=== PATIENT | female | born 2000 | race Caucasian/White ===

== ENCOUNTER 2020-12-11 06:17 | Emergency (ER) | payer OTHER, SELFPAY ==
--- NOTE | ~2020-12-11 | CT_ITS ---
EXAMINATION: CT soft tissue neck wo con EXAM DATE: 12/11/2020 09:15 INDICATION: Throat pain and swelling for 4 days, diagnosed with strep throat. Difficulty swallowing. TECHNIQUE: Spiral CT of the neck was performed without contrast. Axial, coronal and sagittal images were reviewed. The dose-length product (DLP) for this examination was 540.14 mGy-cm. The exposure was tailored according to patient size (auto mA exposure control), and iterative reconstruction (ASIR ) was used as additional dose reduction technique. There is no prior study for comparison. FINDINGS: Mildly enlarged tonsils, but no evidence of tonsillar abscess on this noncontrast study. Th ere are enlarged bilateral internal jugular chain lymph nodes, with a lymph node on the right measuri ng 1.8 x 1.5 cm, and on the left 1.2 x 1.0 cm. These are most likely reactive. Lymphoma not excludabl e, recommend clinical follow-up. The thyroid gland is unremarkable. The submandibular and parotid glands are symmetric. The superi or mediastinum is unremarkable. The airway is unremarkable, epiglottis normal. Parapharyngeal and pre-glottic fat planes are preserved. The orbits are unremarkable. Visualized sinuses and mastoi d air cells are well aerated. Lung apices are clear. There is cervical spondylosis. IMPRESSION: Mild tonsillar enlargement and internal jugular chain lymphadenopathy. Clinical follow-up recommended to resolution. Reviewed, dictated and finalized at location A. IMPRESSION: Mild tonsillar enlargement and internal jugular chain lymphadenopat hy. Clinical follow-up recommended to resolution.
[2020-12-11 06:25] VITALS: BP 128/82; PULSE 92; RESP 20; TEMP 36.6; O2SAT 100
[2020-12-11 06:32] VITALS: O2SAT 100
--- NOTE | 2020-12-11 07:28 | ED.URI ---
HPI - URI/Sore Throat General Chief Complaint: Upper Respiratory Infection Stated Complaint: Uvula swelling Time Seen by Provider: 12/11/20 07:03 Source: RN notes reviewed History of Present Illness HPI Narrative: Patient presents to emergency department from home for swollen uvula. Patient states that starting last night she began to have a swollen uvula that was worsened this morning. She feels like is seen in the back of her throat and causing her to choke intermittently. States that 2 weeks ago she tested positive for strep throat at the [facility] and was placed on penicillin when she took a full course of states she still continues to have throat pain since taking the medication she notes mild rhinorrhea and ear pressure she denies any fevers or chills cough, shortness of breath abdominal pain nausea vomiting or any other symptoms states she has been taking Zyrtec at home as well as Benadryl for the swelling of the uvula Related Data Home Medications Medication Instructions Recorded Confirmed bupropion HCl mg PO DAILY 12/11/20 lamotrigine BID 12/11/20 valacyclovir DAILY 12/11/20 12/11/20 Allergies Allergy/AdvReac Type Severity Reaction Status Date / Time No Known Allergies Allergy Unknown Verified 12/11/20 06:31 Review of Systems Review of Systems: Narrative: Gen.: Denies fevers or chills Eyes: Denies eye pain or visual change ENT: See HPI Respiratory: Denies shortness of breath or cough CV: Denies chest pain or palpitations GI: Denies abdominal pain nausea, emesis or diarrhea Musculoskeletal: Denies back pain or muscle pain Neuro: Denies numbness, tingling, weakness or focal weakness Skin: Denies rash Except as documented, all other systems reviewed and negative [facility] Past Medical History Medical History (Updated 12/11/20 @ 09:58 by Garcia Green DO) Patient denies significant medical history Social History Social History (Updated 12/11/20 @ 07:29 by Garcia Green DO) Smoking status: Never smoker Exam Narrative: Exam Narrative: APPEARANCE: No acute distress, nontoxic, resting in bed EYES: EOMI HEENT: Normocephalic, atraumatic, TMs clear bilaterally, nares patent, mild erythema of the bilateral tonsils with mild whitish exudate tonsils 2+ uvula midline and is swollen tolerating own secretions no trismus airway patent voice normal RESPIRATORY: No respiratory distress Clear to auscultation bilaterally with no rhonchi wheezing or rales. CARDIOVASCULAR: Regular rate and rhythm without murmurs rubs or gallops. ABDOMINAL: Soft, nontender, nondistended, no rebound or guarding MUSCULOSKELETAl: Moves all extremities. No clubbing, cyanosis or edema. NEURO: Awake and alert. Following commands, speech normal, no focal deficits SKIN:: Warm, dry. No rashes lesions or abrasions PSYCHIATRIC: Normal affect/mood, TMs clear bilaterally, nares patent Course Course Emergency Course: Discussed with patient results of workup and diagnosis. Discussed need for follow-up with primary care, proper use of medication, and reasons to return to the emergency department. Patient understands and agrees to current treatment plan. Patient is on Zyrtec at home will continue to take Vital Signs Vital signs: Vital Signs Temperature 97.8 F 12/11/20 06:25 Pulse Rate 92 12/11/20 06:25 Respiratory Rate 20 12/11/20 06:25 Blood Pressure 128/82 12/11/20 06:25 Pulse Oximetry 100 12/11/20 06:25 Temperature 97.8 F 12/11/20 06:25 Pulse Rate 92 12/11/20 06:25 Respiratory Rate 20 12/11/20 06:25 Blood Pressure 128/82 12/11/20 06:25 Pulse Oximetry 100 12/11/20 06:32 MDM - URI/Sore Throat Lab Data Labs: Lab Results 12/11/20 Range/Units 08:03 Monoscreen Negative (Negative) Strep Screen Positive Group A Strep *(Reference Range: Negative)* Imaging Data Radiologist's impression: ITS Impressions
[2020-12-11] MEDS: FAMOTIDINE 20 MG TABLET PO (07:40)
[2020-12-11] MEDS: predniSONE 20 MG TABLET 60 MG PO (07:40)
[2020-12-11 08:54] LABS: Monoscreen Negative (Negative); Negative Monotest Control Negative (Negative); Positive Monotest Control Positive (Positive)
[2020-12-11] MEDS: CLINDAMYCIN HCL 150 MG CAP 300 MG PO (09:46)
[2020-12-11 10:10] VITALS: BP 133/70; PULSE 60; RESP 15; O2SAT 100
== END 2020-12-11 10:10 | disposition home or self-care (01) ==
PROVIDERS: Emergency Provider Emergency Medicine
DX: J02.0 Streptococcal pharyngitis (principal); K12.2 Cellulitis and abscess of mouth
CPT/HCPCS: 36415; 70490; 86308; 87880; 99284; A9270; J7512

== ENCOUNTER → 2022-02-06 10:06 | Outpatient (CLI) | payer OTHER, SELFPAY ==
--- NOTE | ~2022-02-06 | US_ITS ---
EXAMINATION: US breast RT limited HISTORY: Palpable lump of the inner and upper inner right breast. TECHNIQUE: Targeted right breast ultrasound is performed in the area of clinical concern. FINDINGS: There is no evidence of focal abnormal cystic or solid mass in the vicinity of the reported palpable abnormality of concern. IMPRESSION: No specific sonographic correlate is identified for the reported palpable abnormality of concern. Fur ther evaluation at this time should be based on clinical assessment. Continued follow-up physical exa mination is recommended. BI-RADS Category 1: Negative Reviewed, dictated and finalized at location A. IMPRESSION: No specific sonographic correlate is identified for the reported palpable abnor mality of concern. Further evaluation at this time should be based on clinical assessment. Continued follow-up physical examination is recommended. BI-RADS Category 1: Negative
== END ==
DX: R23.4 Changes in skin texture (principal)
CPT/HCPCS: 76642